=== PATIENT | male | born 1955 | race Caucasian/White ===

== ENCOUNTER → 2018-02-21 | Outpatient (CLI) | payer MEDICARE ==
--- NOTE | 2018-02-25 11:57 | SLEEP ---
[address] [address] SLEEP STUDY REPORT Name: TEGAN CARERRO Room: [facility]#: [id number] Admission: 02/21/18 Attend Phys: Omer Fuentes DO Discharge: Date of : 57 Report #: [id number] THIS REPORT FOR: //name// CC: Omer Fuentes This study has been reviewed in its entirety by a board certified sleep specialist DATE OF SERVICE: 02/23/2018 REFERRING PHYSICIAN: Omer Fuentes DO TYPE OF STUDY: Polysomnography. METHODS: The following parameters were monitored: Frontal, central and occipital EEG; electro-oculogram; submentalis EMG; nasal and oral airflow; anterior tibialis EMG; body position and electrocardiogram. Additionally, thoracic and abdominal movements were recorded by inductance plethysmography. Oxygen saturation was monitored using pulse oximeter. The tracing was scored using 30-second epochs. Hypopneas were scored per the [place] [employer] definition using the 4% desaturation criteria. SLEEP SUMMARY: Total recording time was 457.2 minutes. Total sleep time was 220 minutes. Sleep efficiency was low at 48.1%. SLEEP STAGING: Stage N1 2.7% of total sleep time, stage N2 49.3% of total sleep time, stage N3 was 36.6% total sleep time and stage REM 11.1% total sleep time. Latency to sleep was 22 minutes and latency to REM was 199.5 minutes. RESPIRATORY DATA: During the study, the patient had a total of 7 central apneas, 26 obstructive apneas and 2 mixed apneas in addition to 20 hypopneas. The overall apnea-hypopnea index was 15.5 per hour and the apnea-hypopnea index during REM was higher at 34 per hour. It was noted also the episodes of respiratory events were more frequent during supine sleep. Significant snoring episodes were recorded during the study. CARDIAC DATA: The average heart rate was 74.6 per minute. No arrhythmias were reported. PLM index was elevated at 163.4 per minute. OXIMETRY DATA: The average O2 saturation was 94%. The lowest O2 saturation recorded with respiratory event was 78% [place] [address] SLEEP STUDY REPORT Name: TEGAN CARRERO Room: [facility]#: [id number] Admission: 02/21/18 Attend Phys: Omer Fuentes DO Discharge: Date of : 57 Report #: [id number] IMPRESSION: 1. The above polysomnography demonstrates obstructive sleep apnea of at least modest degree at apnea-hypopnea index of 15 per hour with oxygen desaturation to a justice of 78%. Please note the obstructive sleep apnea in this gentleman was worse during supine and REM sleep. 2. Elevated periodic limb movement of sleep. Please correlate clinically. RECOMMENDATIONS: 1. Recommend repeat sleep study with the purpose of CPAP titration to determine the adequate CPAP pressure that controls the patient's obstructive sleep apnea. 2. If there is no contraindication, an auto-CPAP can be considered at the pressure range of 4-20 cm of water with a close clinical followup and data download. 3. Avoid supine sleep if possible. 4. Avoid alcohol, sedatives, hypnotics close to bedtime. 5. Recommend maintaining ideal body weight. 6. Avoid driving or operating machinery while drowsy. <ELECTRONICALLY SIGNED> By: Matthew Doherty MD 02/25/18 1157 [id number] 1811Dshital Dueñas MD /nt
== END ==
LOC: M.SLEEPLAB 02-15 21:00
DX: G47.33 Obstructive sleep apnea (adult) (pediatric) (principal); G47.61 Periodic limb movement disorder; I10 Essential (primary) hypertension; N52.9 Male erectile dysfunction, unspecified; M54.16 Radiculopathy, lumbar region; M48.9 Spondylopathy, unspecified; Z68.32 Body mass index [BMI] 32.0-32.9, adult; Z87.891 Personal history of nicotine dependence

== ENCOUNTER → 2018-03-05 | Outpatient (CLI) | payer MEDICARE ==
--- NOTE | 2018-03-15 14:58 | SLEEP ---
[address] [address] SLEEP STUDY REPORT Name: TEGAN CARRERO Room: [facility]#: [id number] Admission: 03/05/18 Attend Phys: Omer Fuentes DO Discharge: Date of : 57 Report #: [id number] THIS REPORT FOR: //name// CC: Fabian Fuentes This study has been reviewed in its entirety by a board certified sleep specialist ATTENDING PHYSICIAN: Dr. Fabian Hernandez. The patient is 62 years old who weighs 205 pounds and is 67 inches tall with a BMI of 32.1. The patient was referred back to Sleep Lab for CPAP titration study. The patient had a previous diagnosis of sleep apnea. During the night study, the patient spent 492 minutes in bed and slept for 317 minutes with a sleep efficiency of 64%, which was low. Sleep latency was 32.5 minutes with a REM latency of 418 minutes. Overall, sleep architecture showed normal stage I sleep, and increased stage II sleep, normal slow wave and reduced REM sleep. During the night of study, the patient's EKG revealed an average heart rate of 64 beats per minute with normal sinus rhythm. No sustained arrhythmias were observed. Maximum heart rate was 84 beats per minute. PLMs were seen at an index of 40 per hour and 10 per hour caused EEG arousals. The patient was started on CPAP at a pressure of 5 cm water and titrated up to 9 cm water. At the final pressure, the patient slept for 79 minutes. The patient had supine as well as REM sleep observed. The patient's AHI was reduced to 0.8 per hour and oxygen saturations remained above 90% with one spot desaturation of 86%. IMPRESSION: 1. Sleep apnea diagnosed previously. 2. Moderate to severe periodic limb movements seen an index of 40 per hour and 10 per hour caused EEG arousals. RECOMMENDATIONS: 1. CPAP at 9 cm water completely eliminated the patient's sleep apnea and should be used on a nightly basis. 2. Follow up in 4-6 weeks to assess compliance with CPAP and to document clinical improvement. 3. Weight loss is strongly advised. 4. Avoid [employer] depressants. 5. Caution regarding driving until symptoms of sleep apnea resolve with the [place] [address] SLEEP STUDY REPORT Name: TEGAN CARRERO Room: [facility]#: [id number] Admission: 03/05/18 Attend Phys: Omer Fuentes DO Discharge: Date of : 57 Report #: [id number] 6. The patient should also be further evaluated for symptoms of restless legs during the day. <ELECTRONICALLY SIGNED> By: Wayne Carlos MD 03/15/18 1458 1820 1853Adario Carlos MD /anson
== END ==
LOC: M.SLEEPLAB 20:00
DX: G47.33 Obstructive sleep apnea (adult) (pediatric) (principal)